=== PATIENT | male | born 1940 | race Caucasian/White ===

== ENCOUNTER 2016-11-07 09:15 | Outpatient (CLI) | payer MEDICARE ==
[~2016-11-07] VITALS: Ht 172.7 cm; Wt 87.7 kg
[~2016-11-07 09:15] MED LIST: ACET-2267 PO; AMLO5TAB2 PO; ASPI-808 PO; AVOD0.5CAP PO; BACL10TA PO; CETI10TA20 PO; CHLO4TAB36 PO; DUTA0.5C14 PO; FLUT16SP22 NS; FLUT9.9S NS; FURO-124 PO; FURO40TA4 PO; GLUC-116 PO; HYDR-3812 PO; IPR14IN IH; METO-272 PO; METO50TA2 PO; MULT-974 PO; NITR0.4T SL; OMEP20CA12 PO; OMG1KC PO; OXYC-471 PO; POLY119P5 PO; POTA10TA10 PO; PRAV40TA2 PO; SODI104S3 NSEACH; TAMS0.4C2 PO; WHEA1POW6 PO; WHEA98PO PO
[2016-11-07] MEDS ORDERED: ASPI-586 PO (10:18)
[2016-11-07] MEDS ORDERED: GLUC100016 PO (10:18)
[2016-11-07] MEDS ORDERED: OMEG100032 PO (10:18)
== END 2016-11-07 10:36 ==
LOC: PREOP 09:15
PROVIDERS: ATTEND Orthopaedic Surgery
DX: Z01.818 Encounter for other preprocedural examination (principal); M48.03 Spinal stenosis, cervicothoracic region

== ENCOUNTER 2016-11-21 05:59 | Inpatient (IN) | payer MEDICARE ==
[~2016-11-21] VITALS: Ht 172.7 cm; Wt 87.7 kg
[~2016-11-21 05:59] MED LIST changes: +ASPI-586 PO; +GLUC100016 PO; +OMEG100032 PO
[2016-11-21 06:30] VITALS: BP 179/87
[2016-11-21] MEDS ORDERED: DEXMEDETOMIDINE PRE-MIX (OR) 50 ML IV ONE (06:57)
[2016-11-21] MEDS ORDERED: ceFAZolin 2 GM/NS 50 ML IV ONE (07:00)
[2016-11-21] MEDS ORDERED: CATHETER FLUSH 10 ML SYR IV PRN (07:00)
[2016-11-21] MEDS ORDERED: FAMOTIDINE 20MG/2ML IV (PEPCID) ONE (07:01)
[2016-11-21] MEDS: LACTATED RINGERS 1,000 ML IV PRN ×2 (07:09→08:40)
[2016-11-21] MEDS ORDERED: fentaNYL INJECTION 250 MCG/5 ML AMP ONE (07:11)
[2016-11-21] MEDS ORDERED: proPOfol 200 MG/20 ML (DIPRIVAN) VIAL IV ONE (07:11)
[2016-11-21] MEDS ORDERED: ROCURONIUM 50 MG/5 ML (ZEMURON) VIAL IV ONE (07:11)
[2016-11-21] MEDS ORDERED: ARTIFICIAL TEARS OINT (LACRI-LUBE) 3.5 GM TUBE ONE (07:14)
[2016-11-21] MEDS ORDERED: FAMOTIDINE 20MG/2ML IV (PEPCID) IV ONE (07:15)
--- NOTE | 2016-11-21 07:32 | Progress Note-Pre Operative ---
Pre-Operative Progress Note H&P Reviewed The H&P was reviewed, patient examined and no changes noted. Date H&P Reviewed: Nov 21, 2016 Time H&P Reviewed: 07:32 Pre-Operative Diagnosis: stenosis SUJEY MENDES DO Nov 21, 2016 07:32
[2016-11-21] MEDS ORDERED: BACITRACIN 100,000 UNIT/NS 1000 ML POUR BOTTLE IR ONE ×2 (08:45)
[2016-11-21] MEDS ORDERED: DEXAMETHASONE PF 10 MG/ML (DECADRON) VIAL ONE (09:11)
[2016-11-21] MEDS ORDERED: LACTATED RINGERS 2,000 ML IV ONE (09:11)
[2016-11-21] MEDS ORDERED: SEVOFLURANE (ULTANE) 15 ML INHAL SOLN ONE ×4 (09:11→09:50)
[2016-11-21] MEDS ORDERED: ONDANSETRON 4 MG/2 ML (SDV) Z0FRAN ONE ×2 (09:11→09:52)
[2016-11-21] MEDS ORDERED: GLYCOPYRROLATE 0.2 MG/ML (ROBINUL) 2 ML VIAL ONE (09:11)
[2016-11-21] MEDS ORDERED: HYDROmorphone (DILAUDID) 2 MG/ML VIAL ONE (09:51)
[2016-11-21] MEDS ORDERED: morphine INJ 10 MG/ML 1ML (SYR OR VIAL) ONE (09:52)
[2016-11-21] MEDS ORDERED: fentaNYL INJECTION 100 MCG/2 ML AMP ONE (09:52)
[2016-11-21] MEDS ORDERED: ONDANSETRON 4 MG/2 ML (SDV) Z0FRAN IVP PRN (10:30)
[2016-11-21] MEDS ORDERED: morphine INJ 10 MG/ML 1ML (SYR OR VIAL) IV PRN (10:30)
[2016-11-21] MEDS ORDERED: BISACODYL 5 MG (DULCOLAX) TABLET PO PRN (10:30)
[2016-11-21] MEDS ORDERED: BISACODYL 10 MG SUPP (DULCOLAX) PR PRN (10:30)
[2016-11-21] MEDS ORDERED: ONDANSETRON 4 MG/2 ML (SDV) Z0FRAN IV PRN (10:30)
[2016-11-21] MEDS ORDERED: DOCUSATE SODIUM 100 MG (COLACE) CAP PO PRN (10:30)
[2016-11-21] MEDS ORDERED: ACETAMINOPHEN 325 MG TABLET/CAPLET (TYLENOL) PO PRN (10:30)
[2016-11-21] MEDS ORDERED: oxyCODONE/APAP 5/325MG (PERCOCET 5) TABLET PO PRN (10:30)
[2016-11-21] MEDS ORDERED: CYCLOBENZAPRINE 10 MG (FLEXERIL) TAB PO PRN (10:30)
[2016-11-21] MEDS: morphine INJ 10 MG/ML 1ML (SYR OR VIAL) IVP PRN ×2 (10:50→11:00)
--- NOTE | 2016-11-21 11:04 | Diagnostic Imaging Report ---
INDICATION: Followup neck pain. DISCUSSION: Fluoroscopic support was provided during anterior cervical stabilization. Please see the operative report for full detail. FLUOROSCOPY TIME: 18 seconds. IMPRESSION: Intraoperative cervical spine stabilization. Dictated by: Dictated on workstation # [id number]
[2016-11-21 12:00] VITALS: BP 149/73
[2016-11-21 15:40] VITALS: BP 136/63
[2016-11-21] MEDS: FAMOTIDINE 20 MG (PEPCID) TABLET PO SCH ×2 (17:03→20:03)
[2016-11-21] MEDS: ceFAZolin INJECTION 1,000 MG in NS (IVPB) 50 ML IV SCH ×2 (17:03→22:13)
[2016-11-21] MEDS ORDERED: amLODIPine 5 MG (NORVASC) TAB PO SCH (18:00)
[2016-11-21] MEDS ORDERED: ALFUZOSIN HCL 10 MG TAB (UROXATRAL) PO SCH (18:00)
[2016-11-21] MEDS ORDERED: NITROGLYCERIN SUBLINGUAL 0.4 MG TAB (NITROSTAT) SL PRN (18:00)
[2016-11-21 19:55] VITALS: BP 134/60
[2016-11-21] MEDS: meTOprolol TARTRATE 50 MG (LOPRESSOR) TAB PO SCH (20:02)
[2016-11-21] MEDS ORDERED: RT-IPRATROPIUM (ATROVENT) 0.5MG/2.5ML AMP IH SCH (21:00)
[2016-11-21] MEDS ORDERED: SIMvastatin 20 MG (ZOCOR) TAB PO SCH (21:00)
[2016-11-21] MEDS ORDERED: [UNRECOGNIZED DRUG - OTHER] INH SCH (21:00)
[2016-11-21] MEDS ORDERED: FLUTICASONE NASAL SPRAY (FLONASE) 16 GM BTL NS SCH (21:00)
[2016-11-22 00:57] VITALS: BP 129/62
[2016-11-22 04:48] VITALS: BP 123/60
[2016-11-22] MEDS: ceFAZolin INJECTION 1,000 MG in NS (IVPB) 50 ML IV SCH (05:45)
[2016-11-22 06:57] LABS: BASOPHILS % (AUTO) 0 % (0-10); EOSINOPHILS % (AUTO) 0 % (0-10); LYMPHOCYTES # (AUTO) 1.2 X 10^3 (1.0-4.0); LYMPHOCYTES % (AUTO) 10 % (12-44); MEAN CORPUSCULAR HEMOGLOBIN 30 PG (25-34); MEAN CORPUSCULAR HGB CONC 33 G/DL (32-36); MEAN CORPUSCULAR VOLUME 90 FL (80-99); MEAN PLATELET VOLUME 11.6 FL (7.4-10.4); MONOCYTES # (AUTO) 1.1 X 10^3 (0.0-1.0); MONOCYTES % (AUTO) 10 % (0-12); NEUTROPHILS # (AUTO) 9.7 X 10^3 (1.8-7.8); NEUTROPHILS % (AUTO) 81 % (42-75); PLATELET COUNT 147 10^3/uL (130-400); RED BLOOD COUNT 3.64 10^6/uL (4.35-5.85); RED CELL DISTRIBUTION WIDTH 13.6 % (10.0-14.5); WHITE BLOOD COUNT 11.9 10^3/uL (4.3-11.0)
[2016-11-22] MEDS ORDERED: MULTIVIT W/MINERALS TAB (THERAGRAN M) PO SCH (07:00)
[2016-11-22 08:00] VITALS: BP 149/67
[2016-11-22] MEDS: FAMOTIDINE 20 MG (PEPCID) TABLET PO SCH (08:11)
[2016-11-22] MEDS: meTOprolol TARTRATE 50 MG (LOPRESSOR) TAB PO SCH (08:11)
[2016-11-22] MEDS ORDERED: FUROSEMIDE 40 MG (LASIX) TAB PO SCH (09:00)
[2016-11-22] MEDS ORDERED: KCL 10 MEQ TAB (MICRO K) PO SCH (09:00)
[2016-11-22] MEDS ORDERED: LORATADINE (CLARITIN) 10 MG TAB PO SCH (09:00)
[2016-11-22] MEDS ORDERED: CHLORPHENIRAMINE (CHLOTRIMENTON) 4 MG TAB PO SCH (09:00)
--- NOTE | 2016-11-22 09:38 | Physical Therapy Progress Note ---
Therapy Progress Note Patient is up independent in room and hallway without difficulty. From a PT standpoint, patient continue to ambulate PRN and up in room independent to restroom. No skilled PT indicated. 1 visit NANO ACE PT Nov 22, 2016 09:38
--- NOTE | 2016-11-22 11:26 | Consultation-Hospitalist ---
HPI History of Present Illness: HPI/Chief Complaint CC: Postop medical management following uncomplicated cervical spine surgery by Dr. Zuniga HPI: This is a 76-year-old white male clinic patient of Dr. Sanchez at [facility] with a past medical history of hypertension, BPH and cervical spine disease the presents after an uncomplicated cervical spine stenosis procedure by Dr. Zuniga. Overall he is feeling well pain is well controlled and able to eat a soft breakfast with some throat soreness. He is urinating without difficulty and overall feeling well and I review his home meds that have been all restarted. Source: patient Exam Limitations: no limitations Date Seen 11/22/16 Attending Physician Ronnie Zuniga DO PCP No,Local Physician Referring Physician Date of Admission Nov 21, 2016 at 10:13 Home Medications & Allergies Home Medications Reviewed patient Home Medication Reconciliation Form Allergies Allergies Coded Allergies Sulfa (Sulfonamide Antibiotics) (Verified Allergy, Severe, ANAPHYLAXIS, 10/14/15 ) Past Fshinjj-Xvtyuu-Skqicj Hx Patient Social History Marrital Status: Employed/Student: retired Alcohol Use: Denies Use Recreational Drug Use: No Smoking Status: Never a Smoker Physical Abuse Screen: No Sexual Abuse: No Recent Foreign Travel: No Contact w/other who traveled: No Recent Hopitalizations: No Recent Infectious Disease Expo: No Immunizations Up To Date Date of Pneumonia Vaccine: May 15, 2015 Date of Influenza Vaccine: Apr 15, 2016 Seasonal Allergies Seasonal Allergies: Yes Surgeries HX Surgeries: Yes (back sx and back fusion, aortic heart valve replaced 2014, ) Surgeries: Cardiac, Valve Replacement Respiratory Hx Respiratory Disorders: Yes Respiratory Disorders: Asthma, COPD Cardiovascular Hx Cardiovascular Disorders: Yes (aortic valve replacement in 2014) Cardiac Disorders: High Cholesterol, Hypertension Neurological Hx Neurological Disorders: Yes (POSSIBLE SEIZURE ACTIVITY WITH SYNCOPE EPISODE) Reproductive System Hx Reproductive Disorders: No Sexually Transmitted Disease: No HIV/AIDS: No Genitourinary Hx Genitourinary Disorders: Yes Genitourinary Disorders: Prostate Problems Gastrointestinal Hx Gastrointestinal Disorders: Yes (HX FISTULA) Gastrointestinal Disorders: Gastroesophageal Reflux, Diverticulosis, Hemorrhoids, Polyps Musculoskeletal Hx Musculoskeletal Disorders: Yes Musculoskeletal Disorders: Degenerate Disk Disease, Arthritis, Chronic Back Pain Endocrine Hx Endocrine Disorders: No HEENT HX ENT Disorders: No Cancer Hx Cancer: No Psychosocial Hx Psychiatric Problems: No Integumentary HX Skin/Integumentary Disorder: No Blood Transfusions Hx Blood Disorders: No Adverse Reaction to a Blood Tr: No (HAS HAD BLOOD WITHOUT DIFFICULTY) Family Medical History Family Hx: Cardiovascular disease 19 MOTHER (AORTIC VALVE REPLACEMENT) DAUGHTER ([place]) Completed stroke 19 FATHER Diabetes mellitus 19 FATHER Hypertension 19 FATHER 19 MOTHER G8 SISTER DAUGHTER Respiratory disorder G8 SISTER (SLEEP APNEA) Review of Systems Constitutional: see HPI EENTM: no symptoms reported Respiratory: no symptoms reported Cardiovascular: no symptoms reported Gastrointestinal: no symptoms reported Genitourinary: decreased output Musculoskeletal: no symptoms reported Skin: no symptoms reported Psychiatric/Neurological: No Symptoms Reported All Other Systems Reviewed Negative Unless Noted: Yes Physical Exam Physical Exam Vital Signs Vital Sign - Last 12Hours 11/21/16 11/21/16 06:30 11:45 Temp 98.0 Pulse 65 Resp 18 B/P (MAP) 179/87 Pulse Ox 96 O2 Delivery Room Air O2 Flow Rate 3.00 Capillary Refill : Less Than 3 Seconds General Appearance: No Apparent Distress, WD/WN, Chronically ill Eyes: Bilateral Eye Normal Inspection, Bilateral Eye PERRL HEENT: PERRL/EOMI, Normal ENT Inspection, Pharynx Normal Neck: Full Range of Motion, Normal Inspection, Non Tender, Supple, Carotid Bruit Respiratory: Chest Non Tender, Lungs Clear, Normal Breath Sounds, No Accessory Muscle Use, No Respiratory Distress Cardiovascular: Regular Rate, Rhythm, No Edema, No Gallop, No JVD, No Murmur, Normal Peripheral Pulses Gastrointestinal: Normal Bowel Sounds, No Organomegaly, No Pulsatile Mass, Non Tender, Soft Back: Normal Inspection (except that limited range of motion due to surgery status), No CVA Tenderness, No Vertebral Tenderness Extremity: Normal Capillary Refill, Normal Inspection, Normal Range of Motion, Non Tender, No Calf Tenderness, No Pedal Edema Neurologic/Psychiatric: Alert, Oriented x3, No Motor/Sensory Deficits, Normal Mood/Affect Skin: Normal Color, Warm/Dry Lymphatic: No Adenopathy Results Results/Procedures Lab Laboratory Tests 11/22/16 06:40 Assessment/Plan Admission Diagnosis Assessment: Uncomplicated cervical spine stenosis procedure by Dr. Zuniga POD#1 Hypertension BPH CAD history Hyperlipidemia Assessment and Plan Plan: Monitor closely Monitor BP Monitor due to cardiac risk factors Monitor for urinary retention Ambulate Soft diet Clinical Quality Measures DVT/VTE Risk/Contraindication: Risk Factor Score Per Nursin RFS Level Per Nursing on Admit: 2=Moderate TRES BAXTER DO Nov 22, 2016 11:26
[2016-11-22 12:00] VITALS: BP 158/72
--- NOTE | 2016-11-22 12:51 | Diagnostic Imaging Report ---
EXAMINATION: AP and lateral views of the cervical spine. INDICATION: Postoperative evaluation. FINDINGS: There is anterior fusion hardware involving the C6 through T1 levels. This includes an anterior plate and screws as well as a disc cage at the levels involved. The alignment of the posterior spinal line appears satisfactory although this is not well seen more inferiorly along the T1-T2 level. There is a catheter or drain projecting over the left side of the neck and sternotomy wires are also seen. The upper cervical spine demonstrates straightening of the lordotic curvature. There is minimal anterior translation of C4 over C5. Minimal posterior osteophytes at C3-4 are also seen. IMPRESSION: Baseline post C6 through T1 anterior fusion. Dictated by: Dictated on workstation # [id number]
--- NOTE | 2016-11-22 13:19 | Occupational Therapy Eval ---
OT Evaluation-General/PLF Medical Diagnosis Admission Date Nov 21, 2016 at 10:13 Onset Date: Nov 21, 2016 Therapy Diagnosis Therapy Diagnosis: debility Height/Weight Height (Feet): 5 Height (Inches): 8.00 Weight (Pounds): 193 Weight (Ounces): 6.0 Precautions Precautions/Isolations: Fall Prevention, Standard Precautions Safety Interventions: None Referral Physician: Efrain Medical History Pertinent Medical History: CAD, COPD, GERD, HTN Additional Medical History BPH, asthma, aortic valve replacement, high cholesterol, possible seizure activity, DDD, arthritis, chronic back pain. Current History pt s/p C6-T1 anterior cervical decompression and fusion Reviewed History: Yes Social History Home: Single Level Current Living Status: Spouse ADL-Prior Level of Function ADL PLOF Comments Pt reports being independent with basic self care and mobility. DME/Equipment: Bath Chair, Shower Drive Self: Yes ( does most of the driving) OT Current Status Subjective Pt sitting EOB, agrees to therapy. Pt has no c/o pain. Mental Status/Objective Patient Orientation: Person, Place, Time, Situation Attachments: Drains Current Upper Extremity ROM Grossly WFL Upper Extremity Coordination Intact Upper Extremity Sensation Pt states he is not having any numbness ADL-Treatment ADL-Current Pt is already dressed this morning, states he was able to complete without assistance. Pt reports he fed himself breakfast and was able to manage containers and cut food without assistance. Pt sit to stand and demonstrated ability to perform toilet transfer with modified independence. Pt has no LOB during ambulation without AD. Pt states he is completing mobility and self care in room without assistance, does not have any concerns. Pt states spouse will be able to assist at home if needed. Pt denied any further needs. Pt sitting EOB with needs met and spouse present after session. Functional Parkin Measure 0=Not Assessed/NA 4=Minimal Assistance 1=Total Assistance 5=Supervision or Setup 2=Maximal Assistance 6=Modified Parkin 3=Moderate Assistance 7=Complete IndependenceIRFPAI Quality Coding Scale 6 Independent with activity with or without an assistive device 5 Patient requires set up or clean up by helper. Patient completes activity by themselves 4 Supervision or touching assist (CGA). Orange provide cues , steadying assist 3 The helper provides less than half the effort to complete the activity 2 The helper provides more than half the effort to complete the activity 1 Dependent. The helper does all the effort to complete an activity 7 Patient refused to complete or attempt activity 9 The patient did not perform the activity before the current illness or injury 88 Not attempted due to Medical conditions or safety concerns Education OT Patient Education: Rehab process Teaching Recipient: Patient Teaching Methods: Discussion Response to Teaching: Verbalize Understanding OT Education/Plan Problem List/Assessment Assessment: No Skilled OT Needs ID'd Pt s/p cervical surgery. Pt is up ad yuri in room and had completed dressing this morning prior to therapist's arrival. Pt demonstrates ability to perform transfer with modified independence. Pt has no questions or concerns regarding ADLs or home safety, denied further needs. Spouse will be available to assist at d/c. No skilled OT intervention indicated at this time. D/C OT. Discharge Recommendations Plan/Recommendations: Discontinue OT Treatment Plan/Plan of Care Treatment,Training & Education: No Treatment Duration: Nov 22, 2016 (evaluation only) Visits Per Week: 1-evaluation only Rehab Potential: Good Time/GCodes Start Time: 09:24 Stop Time: 09:40 Total Time Billed (hr/min): 16 Billed Treatment Time 1 visit, KIRSTIE(16minutes) IVANA IBRAHIM OT Nov 22, 2016 13:19
--- NOTE | 2016-11-22 13:42 | OPERATIVE REPORT ---
PROCEDURE PHYSICIAN: SUJEY MENDES DATE OF PROCEDURE: 11/21/2016 SURGEON: Dr. Efrain DO TRANSACTION COORDINATOR: PEYTON Beckman. This is a medically necessary procedure and triage assistant is necessary for retraction of vital neurovascular structures. Without an triage assistant, the procedure would not be possible. PREOPERATIVE DIAGNOSES: 1. Cervical radiculopathy. 2. Cervical stenosis (bony), foraminal, central. PROCEDURE PERFORMED: 1. Cervical radiculopathy. 2. Cervical stenosis (bony), foraminal, central. PROCEDURE PERFORMED: 1. Anterior cervical discectomy and fusion C6-7 C7-T1. 2. Application of peek cage, C6-7 and C7-T1 free. 3. Application of anterior instrumentation, C6-7 and T7-T1. 4. Use of human allograft. 5. Use of local bone autograft. COMPLICATIONS: None. SPECIMENS SENT: None. ESTIMATED BLOOD LOSS: Minimal. ANESTHESIA: General endotracheal tube anesthesia with local anesthetic. DRAIN PLACED: Hemovac. HISTORY OF PRESENT ILLNESS: Mr. Sorenson is a very pleasant 76-year-old gentleman, failed conservative measures for a spinal stenosis. MRI did demonstrate spinal stenosis at C6-7 and T7-T1. I did explain to the patient the difficulty of this procedure considering how low it was in his neck specifically C7-T1, especially difficult given his body habitus. However, he did wish to proceed. OPERATION: The patient was identified by name on wrist band in the preoperative holding area. His operative site was signed, consent was signed. SCDs were placed, neural monitoring was hooked up and antibiotics were started. He was taken to the operating room theater, placed under general endotracheal tube anesthesia and transferred to the operating table in the supine position. All bony prominences were padded, slight traction was placed downward on his shoulders to allow access to the disc space. He was then prepped and draped in the usual sterile fashion. A formal timeout was conducted. I then made a left-sided oblique incision over the sternocleidomastoid. I proceeded with standard anterior cervical approach exposing the C6-7 and T7-T1 levels. Please note this was quite difficult due to his body habitus. I then placed a self retaining retractor and [place] pins in the body of C6 and the body of C7. I applied distraction across the disc space and I performed a complete discectomy all the way through the posterior longitudinal ligament. I performed bilateral foraminotomies. I then shot size and chose the appropriate peak interbody cage packed with human allograft and I seated it in the midline position. I repeated this process for C7-T1. I then chose a new basis plate contoured it to the vertebral bodies and I placed screws through the plate into the body of C6, C7 and T1. I final tightened all set screws. Final AP and lateral demonstrated appropriate positioning of the hardware. I placed a drain alongside the plate. I sewed the drain into place. I maintained hemostasis, I irrigated the wound. I closed the wound in my usual layered fashion utilizing 3-0 Vicryl, followed by running 3-0 subcuticular stitch. I applied dressings and took the patient in the supine position to the PACU where he awoke without incident. He tolerated the procedure well. PLAN: The plan at this time is to admit the patient overnight for IV antibiotics, IV pain control and postop monitoring. Get him out of bed on postop day one, discontinue his drain and his Stafford per my protocol, ensure that he could swallow and that his pain is controlled prior to discharge. Please note instrumentation utilized for this was [employer] for everything, neural monitoring was stable throughout. Job ID: [id number] Dictated Date: 11/21/2016 10:01:57 Sagger Preparer Date: 11/22/2016 13:10:21 / elvis
--- NOTE | 2016-11-22 15:17 | Anesthesia-General Post-Op ---
General Patient Condition Mental Status/LOC: Same as Preop Cardiovascular: Satisfactory Nausea/Vomiting: Absent Respiratory: Satisfactory Pain: Controlled Complications: Absent Post Op Complications Complications None Follow Up Care/Instructions Patient Instructions None needed. Anesthesia/Patient Condition Patient Condition Patient is doing well, no complaints, stable vital signs, no apparent adverse anesthesia problems. No complications reported per nursing. D/C home per [facility] Criteria: No CURTIS FINN CRNA Nov 22, 2016 15:17
[2016-11-23] MEDS ORDERED: FINASTERIDE (PROSCAR) 5 MG TAB PO SCH (09:00)
--- NOTE | 2016-12-15 11:42 | Discharge Summary ---
Diagnosis/Chief Complaint Date of Admission Nov 21, 2016 at 10:13 Date of Discharge Nov 22, 2016 at 16:20 Discharge Date: Nov 22, 2016 Admission Diagnosis Admission Diagnosis cervical stenosis Discharge Diagnosis same Reason Hospital Visit 76 year old with symptomatic spinal stenosis that failed conservative treatments. Discharge Summary Discharge Physical Examination Allergies: Coded Allergies: Sulfa (Sulfonamide Antibiotics) (Verified Allergy, Severe, ANAPHYLAXIS, 10/14/15) Hospital Course 76 yr old with spinal stenosis admitted to hospital on 11/21/2016 and went to OR on same day for C6-7, C7-T1 spinal stenosis. He tolerated that procedure well and without complications. Discharge Instructions to patient/family Please see electonic discharge instructions given to patient. Discharge Medications Reviewed and agree with Discharge Medication list on patient's Discharge Instruction sheet Clinical Quality Measures DVT/VTE Risk/Contraindication: Risk Factor Score Per Nursin RFS Level Per Nursing on Admit: 2=Moderate SUJEY MEDNES DO December 15, 2016 11:42
== END 2016-11-22 16:20 | disposition home or self-care (01) | DRG 30 ==
LOC: SDC 05:59 → 4TH 10:13 → EDSTATUS 11:00 → 4TH 12:00
PROVIDERS: ADMIT Orthopaedic Surgery; ATTEND Orthopaedic Surgery
PROC: 0RG10A0 Fusion of Cervical Vertebral Joint with Interbody Fusion Device, Anterior Approach, Anterior Column, Open Approach (ICD-10-PCS; 2016-11-21)
PROC: 0RG40A0 Fusion of Cervicothoracic Vertebral Joint with Interbody Fusion Device, Anterior Approach, Anterior Column, Open Approach (ICD-10-PCS; principal; 2016-11-21 07:37)
DX: M54.12 Radiculopathy, cervical region (principal); M48.02 Spinal stenosis, cervical region; I10 Essential (primary) hypertension; N40.0 Benign prostatic hyperplasia without lower urinary tract symptoms; E78.5 Hyperlipidemia, unspecified; J44.9 Chronic obstructive pulmonary disease, unspecified; J45.909 Unspecified asthma, uncomplicated; K21.9 Gastro-esophageal reflux disease without esophagitis; Z95.2 Presence of prosthetic heart valve
CPT/HCPCS: 36415; 72040; 85025; 86850; 86900; 86901; 87081; 94640; 94664; 94760